=== PATIENT | female | born 1955 | race Caucasian/White ===

== ENCOUNTER 2025-08-07 12:39 | Outpatient (AMB) | payer MEDICARE, SELFPAY ==
--- NOTE | 2025-08-07 12:51 | A.OFFPC_ITS ---
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 Transferring care from Nani Frias ([facility]). Medical records have been requested and have not received. Dining Room Host Required: No Home Improvement Contractor: Not Required per policy Accompanied by: Self / Same As Patient Allergies Sulfa (Sulfonamide Antibiotics) Allergy (Intermediate, Verified 08/07/25 13:00) Hives Medication List - Last Reconciled 08/07/25 by Disha Mckeon MD citalopram 20 mg PO DAILY Tobacco use date assessed: 08/07/25 Fall risk assessment: No Falls in past year Last assessed Fall Risk: 08/07/25 Dental Screening Dental Screen Date: 08/07/25 Did you have a dental visit in the last 12 months?: Yes Did you have a dental problem in the last 6 months where you did not have access to dental care?: No Was dental information given to patient?: Patient has dentist HPI HPI Comments History of Present Illness Details The patient is a 70-year-old female with PMH of MDD presenting to establish care with a new primary care provider. The patient's only current medication is citalopram 20 mg, which was prescribed for anxiety and paranoid feelings that began during menopause, around age 47. She reports her mood is now fine on the medication and does not want to discontinue it, citing a past attempt to stop that resulted in her feeling unwell. She denies any side effects from the medication. The patient reports no history of diabetes or high cholesterol. Her only past surgery was an appendectomy at age 15. She has a history of shingles. She has never smoked. [facility] Surgical History (Updated 08/07/25 @ 13:02 by MORENITA Molina) History of appendectomy Family History (Updated 08/07/25 @ 13:04 by MORENITA Molina) Father Substance use disorder Mother Pancreas cancer Social History (Updated 08/07/25 @ 12:51 by MORENTIA Molina) [facility] Alcohol intake: never Patient Tobacco Use Status: Never used Tobacco e-Cigarette/Vaping Use: Never Used Second Hand Smoke Exposure: No service: No Current occupational status: retired Cognitive needs: No Hearing needs: No Vision needs: Yes (Reading glasses) Questionnaire PHQ-9 Over the last 2 weeks, how often have you been bothered by any of the following problems? 1. Little interest or pleasure in doing things: not at all 2. Feeling down, depressed, or hopeless: not at all 3. Trouble falling or staying asleep, or sleeping too much: not at all 4. Feeling tired or having little energy: not at all 5. Poor appetite or overeating: not at all 6. Feeling bad about yourself - or that you are a failure or have let yourself or your family down: not at all 7. Trouble concentrating on things, such as reading the newspaper or watching television: not at all 8. Moving or speaking so slowly that other people could have noticed. Or the opposite - being so fidgety or restless that you have been moving around a lot more than usual: not at all 9. Thoughts that you would be better off or of hurting yourself in some way: not at all Total score: 0 Depression Screening Interpretation: Negative Depression Screening Done: Yes Source: Developed by Drs. David Richter, Aicha Parker, Ryan Armando and colleagues, with an educational jordan from [employer]. Thrive Questionnaire Date Thrive assessed: 08/07/25 I am a: Patient What is your living situation today?: I have a steady place to live Within the past 12 months, did the food you bought not last and you didn't have the money to get more?: Never true Within the past 12 months, did you worry whether your food would run out before you got money to buy more?: Never true Do you have trouble paying for medicines?: No Do you have trouble getting transportation to medical appointments?: No Do you have trouble paying your heating and electricity bill?: No Do you have trouble taking care of your child, family member or friend?: No Do you have trouble with day-to-day activities such as bathing, preparing meals, shopping, managing finances, etc.?: No Are you currently unemployed and looking for a job?: No Are you interested in more education?: No Please select the resources that you would like help with: None Currently or been in a relationship where the following occur: No concerns reported THRIVE Score: 0 AUDIT C Alcohol Use Questionnaire (AUDIT-C) 1. How often do you have a drink containing alcohol?: Never Total Score: 0 JOSE-7 AMB Questionnaire JOSE-7 Date JOSE - 7 assessed: 08/07/25 Feeling nervous, anxious, or on edge: 0 = Not at all Not being able to stop or control worryin = Not at all Worrying too much about different things: 0 = Not at all Trouble relaxin = Not at all Being so restless that it is hard to sit still: 0 = Not at all Becoming easily annoyed or irritable: 0 = Not at all Feeling afraid as if something awful might happen: 0 = Not at all Total JOSE-7 score (0-4 normal; 5-9 mild; 10-14 moderate; 15-21 severe): 0 Source: Developed by Drs. David Richter, Aicha Parker, Ryan Armando and colleagues, with an educational jordan from [employer]. Review of Systems Const Details: Positives besides what was mentioned in HPI are in BOLD Constitutional: No Weight Change, No Fever, No Chills, No Night Sweats, No Fatigue, No Malaise ENT/Mouth: No Hearing Changes, No Ear Pain, No Nasal Congestion, No Sinus Pain, No Hoarseness, No sore throat, No Rhinorrhea, No Swallowing Difficulty Eyes: No Eye Pain, No Swelling, No Redness, No Foreign Body, No Discharge, No Vision Changes Cardiovascular: No Chest Pain, No SOB, No PND, No Dyspnea on Exertion, No Orthopnea, No Claudication, No Edema, No Palpitations Respiratory: No Cough, No Sputum, No Wheezing, No Smoke Exposure, No Dyspnea Gastrointestinal: No Nausea, No Vomiting, No Diarrhea, No Constipation, No Pain, No Heartburn, No Anorexia, No Dysphagia, No Hematochezia, No Melena, No Flatulence, No Jaundice Genitourinary: No Dysmenorrhea, No DUB, No Dyspareunia, No Dysuria, No Urinary Frequency, No Hematuria, No Urinary Incontinence, No Urgency, No Flank Pain, No Urinary Flow Changes, No Hesitancy Musculoskeletal: No Arthralgias, No Myalgias, No Joint Swelling, No Joint Stiffness, No Back Pain, No Neck Pain, No Injury History Skin: No Skin Lesions, No Pruritis, No Hair Changes, No Breast/Skin Changes, No Nipple Discharge Neuro: No Weakness, No Numbness, No Paresthesias, No Loss of Consciousness, No Syncope, No Dizziness, No Headache, No Coordination Changes, No Recent Falls Psych: No Anxiety/Panic, No Depression, No Insomnia, No Personality Changes, No Delusions, No Rumination, No SI/HI/AH/VH, No Social Issues, No Memory Changes, No Violence/Abuse Hx., No Eating Concerns Heme/Lymph: No Bruising, No Bleeding, No Transfusions History, No Lymphadenopathy Endocrine: No Polyuria, No Polydipsia, No Temperature Intolerance Physical exam (Primary Care) Vital Signs: Last Vital Signs Temp 97.1 F 08/07/25 12:53 Pulse 64 08/07/25 12:53 BP 130/62 08/07/25 12:53 Pulse Ox 97 08/07/25 12:53 Oxygen Delivery Method Room Air 08/07/25 12:53 BMI result Body Mass Index 30.7 Tobacco/Smoking Status: Tobacco use Status Tobacco use date assessed 08/07/25 08/07/25 12:53 Patient Tobacco Use Status Never used Tobacco 08/07/25 12:53 e-Cigarette/Vaping Use Never Used 08/07/25 12:53 PHQ-9: PHQ-9 Score PHQ-9: Total score 0 08/07/25 12:53 Depression Screening Interpretation: Negative Thrive Assessment: Date of Thrive Assessment Date Thrive assessed 08/07/25 08/07/25 12:53 Currently or been in a relationship where the following occur: No concerns reported Const Other: Pertinent findings are in BOLD GENERAL APPEARANCE NAD, activity normal for age, well developed/ well nourished, no cyanosis, pallor, or diaphoresis. EYES lids/conjunctiva normal. EARS/NOSE/THROAT Mucous membranes moist, nares normal, lips/teeth normal uvula midline without oral pharyngeal erythema, exudate or swelling TMs normal bilaterally. No lymphangitis/lymphedema. HEAD/NECK normocephalic atraumatic, no facial trauma, neck is supple. RESPIRATORY respiratory effort normal, speaks in full sentences, no tripod position, no accessory muscle use. Lungs clear to auscultation without rhonchi, wheezes, rales CARDIAC Regular rate and rhythm, no edema. ABDOMINAL Soft, ND/NT. No evidence of fluid wave. No pulsatile masses on exam, rebound tenderness, Trujillo sign or pain over Mcburney's point. MUSCLES/EXTREMITIES No abnormal range of motion, no swelling. SKIN Warm, pink and dry. No rashes, dermatoses, petechiae or lesions. NEUROLOGICAL Speech is clear and appropriate. Normal level of consciousness. Gait and coordination are normal. 5/5 strength in all extremities. PSYCH Normal mood and affect. Judgement/competence is appropriate Coding Level of Care Code New Pt Prev Care >65yr (12222) Diagnoses Healthcare maintenance Z00.00 JSOE (generalized anxiety disorder) F41.1 Time Spent (min) 30 Assessment & Plan Assessment & Plan (1) Healthcare maintenance: Code(s): Z00.00 - Encounter for general adult medical examination without abnormal findings Category: Medical Plan: CBC, CMP, Lipid panel, A1C, TSH w T4, vit D. Ordered today. Shingles 2 doses when >50 yo. Advised to get it from retail pharmacy. Patient will consider. COVID: two doses. Completed in the past. Tdap: Today. Pneumococcal: >50 yo. 18-49 with CKD, lung disease, weakened immune system, Heart disease, DM, cochlear implant. Recommend the patient gets it from retail pharmacy. Flu vaccine: Declined. Colonoscopy: 45-75. Will bring records next visit. AAA: 65 -75. NI. CT lun - 80. NI HPV: Aged out. HIV: Ordered. HCV: Ordered. Dexa: Declined. Mammogram: Gets it every year. (2) JOSE (generalized anxiety disorder): Code(s): F41.1 - Generalized anxiety disorder Category: Medical Plan: - Continue citalopram 20 mg as the patient reports doing well on it and had a negative experience when stopping it previously. - I will take over the prescription refills. Plan I introduced myself as the patient's new primary care physician. I confirmed with the patient that she consents to the use of a disbursement clerk service for note-taking. We will continue the previously prescribed Citalopram. I recommended she get the shingles vaccine to prevent recurrence and the pneumonia vaccine, suggesting she could get them at a retail pharmacy for convenience. We discussed ordering fasting labs, including a one-time HIV and Hepatitis C screen, and she agreed. I advised a follow-up visit in one year for her annual physical. Orders: Orders Hepatitis C Antibody Reflex Today Z00.00 - Encounter for general adult medical examination without abnormal findings HIV Ab/Ag Today Z00.00 - Encounter for general adult medical examination without abnormal findings MM screening mammo BI Today Z12.31 - Encounter for screening mammogram for malignant neoplasm of breast Complete Blood Count no Diff Today Z00.00 - Encounter for general adult medical examination without abnormal findings Comprehensive Met. Panel Today Z00.00 - Encounter for general adult medical examination without abnormal findings TSH reflex Free T4 Today Z00.00 - Encounter for general adult medical examination without abnormal findings Hemoglobin A1c Today Z00.00 - Encounter for general adult medical examination without abnormal findings Lipid Panel Today Z00.00 - Encounter for general adult medical examination without abnormal findings Medications: New citalopram 20 mg PO DAILY 90 tabs 3RF
[2025-08-07 12:53] VITALS: BP 130/62; PULSE 64; TEMP 36.2; O2SAT 97; BMI 30.7
== END 2025-08-07 13:37 | disposition home or self-care (01) ==
LOC: HO.HMCH 12:40
PROVIDERS: Visit Provider Internal Medicine
DX: Z00.00 Encounter for general adult medical examination without abnormal findings (principal); F41.1 Generalized anxiety disorder; Z23 Encounter for immunization

== ENCOUNTER → 2025-08-07 12:39 | Outpatient (BNVA) | payer MEDICARE, SELFPAY | PROVIDERS: Visit Provider Internal Medicine | DX: Z00.00 Encounter for general adult medical examination without abnormal findings (principal); Z23 Encounter for immunization; F41.1 Generalized anxiety disorder | CPT/HCPCS: 90471; 90715; 96127; 99387 ==

== ENCOUNTER 2025-08-10 09:56 | Outpatient (REF) | payer MEDICARE, SELFPAY ==
[2025-08-10 10:46] LABS: Hematocrit 45.0 % (37.0-47.0); Hemoglobin 14.4 g/dl (12.0-16.0); Mean Corpuscular HGB Conc 32.0 g/dl (31.0-35.0); Mean Corpuscular Hemoglobin 29.6 pg (27.0-33.0); Mean Corpuscular Volume 92.4 fL (80.0-98.0); NRBC Abs Auto 0.000 X10*3/uL (0.0-0.012); NRBC Pct Auto 0.0 /100WBC (0.0-0.2); Platelet Count 306 X10*3/uL (160-400); Red Blood Count 4.87 X10*6/uL (4.20-5.50); White Blood Count 5.2 X10*3/uL (4.8-10.8)
--- OUTSIDE RECORDS SUMMARY | 2025-08-10 12:17 | XMS_ITS | Encounter Summary ---
Author Organization [facility] Address [address] [place] [id number] Phone Care Team Providers Care Jig Grinder Name Role Phone Brooke Frias MD Primary Care Provider Brooke Frias MD Unavailable Encounter Details Date Type Department Care Team (Latest Contact Info) Description 12/18/2021 Transcribe Orders Virtual Department [address] [place] [address] Winnie Wright PA [address] [place] [address] Breast screening (Primary Dx) Social History Tobacco Use Types Packs/Day Years Used Date Smoking Tobacco: Never Smokeless Tobacco: Never Alcohol Use Standard Drinks/Week Comments No 0 (1 standard drink = 0.6 oz pur e alcohol) Comments No Sex and Gender Information Value Date Recorded Sex Assigned at Not on file Legal Sex Female 9:55 PM EDT Gender Identity Not on file Sexual Orientation Not on file Occupation Industry Job Start Date Job End Date [employer] Not on file Not on file Not on file documented as of this encounter Plan of Treatment Not on file documented as of this encounter Results * BI MAMMOGRAM SCREENING WITH TOMOSYNTHESIS WITH CAD (BILATERAL) (03/19/2022 9:02 AM EDT) Anatomical Region Laterality Modality Breast Left, Breast Right, Breast Bilateral Bila teral Mammography 03/20/2022 8:28 AM EDT Impressions 03/20/2022 8:34 AM EDT No mammographic signs of malignancy. Annual screening is recommended. BI-RADS CATEGORY: 1 - Negative. DENSITY: There are scattered fibroglandular densities. Narrative 03/20/2022 8:34 AM EDT Bilateral mammography is performed in conjunction with computed aided detection. 3-D tomography along with 2-D C view imaging was also performed. Comparison made to previous dated as far back as 12/11/2003 and as recent as 03/15/2021. No suspicious masses, areas of architectural distortion or suspicious microcalcifications. Procedure Note Marcelo Levi MD - 03/20/2022 Bilateral mammography is performed in conjunction with computed aideddetection. 3-D tomography along with 2-D C view imaging was alsoperformed. Comparison made to previous dated as far back as 12/11/2003 andas recent as 03/15/2021. No suspicious masses, areas of architectural distortion or suspiciousmicrocalcifications. IMPRESSION: No mammographic signs of malignancy. Annual screening is recommended. BI-RADS CATEGORY: 1 - Negative. DENSITY: There are scattered fibroglandular densities. Winnie POE IMG MG EXAMS Final Result documented in this encounter Visit Diagnoses Diagnosis Breast screening- Primary Breast screening, unspecified Breast screening Breast screening, unspecified documented in this encounter Care Teams Jig Grinder Relationship Specialty Start Date End Date Brooke Frias MD [address] [place] [address] PCP - General 06/08/17 Brooke Frias MD [address] [place] [address] Insurance Assigned Provider 11/28/2302/21 documented as of this encounter Additional Source Comments The information contained in this document represents components of the legal health record. It is not the complete legal health record.[facility]
--- OUTSIDE RECORDS SUMMARY | 2025-08-10 12:17 | XMS_ITS | Encounter Summary ---
Author Organization [facility] Address [address] [place] [id number] Phone Care Team Providers Care Joss House Keeper Name Role Phone Brooke Frias MD Primary Care Provider Brooke Frias MD Unavailable [phone] Encounter Details Date Type Department Care Team (Late st Contact Info) Description 10/05/2018 Ancillary Orders Virtual Department [address] [place] [address] Brooke Frias MD [address] [place] [email or web address] Breast screening Social History Tobacco Use Types Packs/Day Years [...] Industry Job Start Date Job End Date [employer] Not on file Not on file Not on file documented as of this encounter Plan of Treatment Not on file documented as of this encounter Results * BI MAMMOGRAM SCREENING WITH TOMOSYNTHESIS WITH CAD (BILATERAL) (11/24/2018 9:54 AM EDT) Anatomical Region Laterality Modality Breast Left, Breast Right, Breast Bilateral Bila teral Mammography 11/24/2018 10:5 0 AM EDT Impressions 11/24/2018 11:29 AM EDT BILATERAL BREASTS: Negative, no evidence of malignancy. Normal interval follow- up is recommended in 12 months. Bi-RAD: BI-RADS CATEGORY: 1 - Negative. DENSITY: The breast tissue is heterogeneously dense, an appearance which lowers the sensitivity of mammography. POS - CDHMAMA Narrative 11/24/2018 11:29 AM EDT STUDY: Bilateral screening mammography with tomosynthesis and CAD TECHNIQUE: Bilateral full-field digital screening mammography is obtained and read in conjunction with computer-aided detection. Tomosynthesis as well as 2-D C view imaging were obtained. COMPARISON: Comparison made to multiple prior, most recent November 19, 2017, and most remote August 28, 2011. BREAST COMPOSITION: The breasts are heterogeneously dense, which may obscure small masses. BILATERAL BREASTS: No significant masses, calcifications or other abnormalities are seen. Procedure Note Byron Sotelo MD - 11/24/2018 STUDY: Bilateral screening mammography with tomosynthesis and CAD TECHNIQUE: Bilateral full-field digital screening mammography is obtainedand read in conjunction with computer-aided detection. Tomosynthesis aswell as 2-D C view imaging were obtained. COMPARISON: Comparison made to multiple prior, most recent November 19, 2017,and most remote August 28, 2011. BREAST COMPOSITION: The breasts are heterogeneously dense, which mayobscure small masses. BILATERAL BREASTS: No significant masses, calcifications or otherabnormalities are seen. IMPRESSION: BILATERAL BREASTS: Negative, no evidence of malignancy. Normal intervalfollow-up is recommended in 12 months. Bi-RAD: BI-RADS CATEGORY: 1 - Negative. DENSITY: The breast tissue is heterogeneously dense, an appearance whichlowers the sensitivity of mammography. POS - CDHMAMA Brooke Frias MD IMG MG EXAMS Final Resul t documented in this encounter Visit Diagnoses Diagnosis Breast screening Breast screening, unspecified Breast screening Breast screening, unspecified documented in this encounter Care Teams Joss House Keeper Relationship Specialty Start Date End Date Brooke Frias MD [address] [place] [id number] [email or web address] PCP - General 06/08/17 Brooke Frias MD [address] [place] [address] [email or web address] Insurance Assigned Provider 11/28/2302/21 documented as of this encounter Additional Source Comments The information contained in this document represents components of the legal health record. It is not the complete legal health record.[facility]
--- OUTSIDE RECORDS SUMMARY | 2025-08-10 12:18 | XMS_ITS | Encounter Summary ---
Author Organization [facility] Address [address] [place] [address] Phone Care Team Providers Care Business Objects Developer Name Role Phone Brooke Frias MD Primary Care Provider [phone] Brooke Frias MD Unavailable [phone] Encounter Details Date Type Department Care Team (Late st Contact Info) Description 12/18/2021 Procedure Pass [address] [address] Social History Tobacco Use Types Packs/Day Years [...] Industry Job Start Date Job End Date [employer] Not on file Not on file Not on file documented as of this encounter Plan of Treatment Not on file documented as of this encounter Visit Diagnoses Not on filedocumented in this encounter Care Teams Business Objects Developer Relationship Specialty Start Date End Date Brooke Frias MD [address] [place] [address] PCP - General 06/08/17 Brooke Frias MD [address] [place] [address] [email or web address] Insurance Assigned Provider 11/28/2302/21 documented as of this encounter Additional Source Comments The information contained in this document represents components of the legal health record. It is not the complete legal health record.[facility]
--- OUTSIDE RECORDS SUMMARY | 2025-08-10 12:18 | XMS_ITS | Encounter Summary ---
Author Organization [facility] Address [address] [place] [address] Phone Care Team Providers Care Java Technical Manager Name Role Phone Brooke Frias MD Primary Care Provider Brooke Frias MD Unavailable [phone] Encounter Details Date Type Department Care Team (Latest Contact Info) Description 01/06/2018 Transcribe Orders [facility] Main [address] [place] [address] Winnie Wright PA [address] [place] [address] [email or web address] Routine medical exam (Primary Dx) Social History Tobacco Use Types Packs/Day Years Used Date Smoking Tobacco: Never Assessed Comments No Sex and Gender Information Value Date Recorded Sex Assigned at Not on file Legal Sex Female 9:55 PM EDT Gender Identity Not on file Sexual Orientation Not on file documented as of this encounter Plan of Treatment Not on file documented as of this encounter Results * CBC and differential (01/06/2018 1:02 PM EDT) WBC 8.01 3.40 - 11.20 K/uL [facility] RBC 4.68 3.80 - 4.80 M/uL [facility] HGB 13.6 12.0 - 15.0 g/dL [facility] HCT 42.8 36.0 - 46.0 % [facility] PLT 311 130 - 400 K/uL [facility] MCV 91.5 79.0 - 98.0 fL [facility] MCH 29.1 27.0 - 34.8 pg [facility] MCHC 31.8 31.5 - 36.0 g/dL [facility] RDW 13.6 10.8 - 14.6 % [facility] MPV 9.9 9.4 - 12.4 fl [facility] NRBC 0.00 /100 WBCs [facility] ABSOLUTE NRBC 0.00 K/uL [facility] DIFF METHOD Auto [facility] NEUTS 62.8 45.30 - 77.70 % [facility] LYMPHS 28.5 12.30 - 39.70 % [facility] MONOS 5.7 4.10 - 12.80 % [facility] EOS 1.9 0 - 7.2 % [facility] BASOS 0.9 0 - 2.80 % [facility] Granulocytes, immature (%) 0.2 0.0 - 0.9 % [facility] ABSOLUTE NEUTS 5.03 1.40 - 7.70 K/uL [facility] ABSOLUTE LYMPHS 2.28 0.60 - 3.20 K/uL [facility] ABSOLUTE MONOS 0.46 0.11 - 0.59 K/uL [facility] ABSOLUTE EOS 0.15 0.01 - 0.50 K/uL [facility] ABSOLUTE BASOS 0.07 0.00 - 0.08 K/uL [facility] Granulocytes, immature 0.02 0.00 - 0.05 K/uL [facility] Blood 01/06/2018 1:02 PM EDT 01/06/2018 1:06 PM EDT us Winnie POE LAB BLOOD BKR ORDERABLES Final Result [facility] [address] [place], [place] [id number] * Lipid panel (01/06/2018 1:02 PM EDT) HDL 55 mg/dL [facility] Comment: Interpretation: Risk Level Females Decreased >55mg/dL Average 50-55 mg/dL Increased <50 mg/dL CHOLESTEROL 201 0 - 240 mg/dL [facility] TRIGLYCERIDES 99 30 - 160 mg/dL [facility] LDL 126 50 - 129 mg/dL [facility] Comment: LDL levels in terms of risk for coronary heart disease: <100 mg/dL: Optimal 100-129 mg/dL: Near or above optimal 130-159 mg/dL: Borderline high 160-189 mg/dL: High >190 mg/dL: Very High CARDIAC RISK RATIO 3.7 3.3 - 4.4 C [facility] Blood 01/06/2018 1:02 PM EDT 01/06/2018 1:06 PM EDT us Winnie POE LAB BLOOD BKR ORDERABLES Final Result [facility] [address] [place] [address] * Comprehensive metabolic panel (01/06/2018 1:02 PM EDT) SODIUM 144 133 - 146 mmol/L [facility] POTASSIUM 4.4 3.3 - 5.1 mmol/L [facility] CHLORIDE 105 96 - 108 mmol/L [facility] CO2 27 21 - 35 mmol/L [facility] BUN 16 6 - 19 mg/dL [facility] CREATININE 0.70 0.5 - 1.5 mg/dL [facility] GLUCOSE 84 70 - 99 mg/dL [facility] ALBUMIN 4.1 3.9 - 4.8 g/dL [facility] TOTAL PROTEIN 7.2 6.5 - 8.0 g/dL [facility] CALCIUM 9.0 8.4 - 10.3 mg/dL [facility] ALKALINE PHOSPHATASE 84 39 - 117 U/L [facility] TOTAL BILIRUBIN 0.2 0.0 - 1.2 mg/dL [facility] AST 19 0 - 37 U/L [facility] ALT 17 0 - 40 U/L [facility] GLOBULIN 3.1 1 - 4.8 g/dL [facility] EGFR 93 >59 mL/min/1.7 3m2 [facility] Comment:If patient is black, multiply result by 1.159. The eGFR calculation has changed from the MDRD equation to the CKD-EPI equation as of October 27, 2017. ANION GAP 16 10 - 20 mmol/L [facility] Blood 01/06/2018 1:02 PM EDT 01/06/2018 1:06 PM EDT Winnie POE LAB BLOOD BKR ORDERABLES Final Result Performing Organization Address [facility] de Phone Number [address] [address] * (ABNORMAL) Urinalysis (01/06/2018 1:02 PM EDT) COLOR STRAW(A) Yellow [facility] CLARITY Clear [facility] GLUCOSE Negative Negative [facility] BILI Negative Negative [facility] KETONES Negative Negative [facility] SPECIFIC GRAVITY <1.005 1.005 - 1.030 [facility] BLOOD Negative Negative [facility] PH 6.0 5.0 - 8.0 [facility] Protein-UA Negative Negative [facility] NITRITE Negative Negative [facility] Leukocyte esterase, ur Negative Negative [facility] Urine (Urine) 01/06/2018 1:0 2 PM EDT 01/06/2018 1:06 PM EDT Winnie POE LAB URINE ORDERABLES Final Resu lt Performing Organization Address [facility] de Phone Number [address] [address] documented in this encounter Visit Diagnoses Diagnosis Routine medical exam- Primary Routine general medical examination at a health care facility documented in this encounter Care Teams Java Technical Manager Relationship Specialty Start Date End Date Brooke Frias MD [address] [place] [address] PCP - General 06/08/17 Brooke Frias MD [address] [place] [address] Insurance Assigned Provider 11/28/2302/21 documented as of this encounter Additional Source Comments The information contained in this document represents components of the legal health record. It is not the complete legal health record.[facility]
--- OUTSIDE RECORDS SUMMARY | 2025-08-10 12:18 | XMS_ITS | Encounter Summary ---
Author Organization [facility] Address [address] [place] [address] Phone Care Team Providers Care Driller Operator Name Role Phone Brooke Frias MD Primary Care Provider [phone] Brooke Frias MD Unavailable [phone] Encounter Details Date Type Department Care Team (Late st Contact Info) Description 12/29/2023 Procedure Pass [facility] [address] [place] [address] Social History Tobacco Use Types Packs/Day Years Used Date Smoking Tobacco: Never Smokeless Tobacco: Never Alcohol Use Standard Drinks/Week Comments No 0 (1 standard drink = 0.6 oz pur e alcohol) Education Answer Date Recorded Are you interested in more education? Not on rajni e 12/19/2022 Are you concerned about learning? Not on file 12/19/2022 No 12/19/2022 No 12/19/2022 Digital Access Answer Date Recorded No 01/19/2023 No 01/19/2023 Reliable internet access at home? Not on file 01/19/2023 Device with a working camera? Not on file Comments No Sex and Gender Information Value Date Recorded Sex Assigned at Not on file Legal Sex Female 9:55 PM EDT Gender Identity Not on file Sexual Orientation Not on file Occupation Industry Job Start Date Job End Date [employer] Not on file Not on file Not on file documented as of this encounter Plan of Treatment Not on file documented as of this encounter Visit Diagnoses Not on filedocumented in this encounter Care Teams Driller Operator Relationship Specialty Start Date End Date Brooke Frias MD [address] [place] [address] [email or web address] PCP - General 06/08/17 Brooke Frias MD [address] [place] [address] [email or web address] Insurance Assigned Provider 11/28/2302/21 documented as of this encounter Additional Source Comments The information contained in this document represents components of the legal health record. It is not the complete legal health record.[facility]
--- OUTSIDE RECORDS SUMMARY | 2025-08-10 12:18 | XMS_ITS | Encounter Summary ---
Author Organization [facility] Address [address] [place] [address] [place] [address] Phone Care Team Providers Care Tiller Worker Name Role Phone Brooke Frias MD Primary Care Provider [phone] Brooke Frias MD Unavailable [phone] Encounter Details Date Type Department Care Team (Late st Contact Info) Description 01/15/2019 Ancillary Orders [facility], X-Ray - [address] [place] [address] Winnie Wright PA [address] [place] [address] [email or web address] Social History Tobacco Use Types Packs/Day Years [...] Industry Job Start Date Job End Date [employer] Not on file Not on file Not on file documented as of this encounter Plan of Treatment Not on file documented as of this encounter Results * XR KNEE 4 OR MORE VIEWS (LEFT) (01/15/2019 3:12 PM EDT) Anatomical Region Laterality Modality Knee Left Radiographic Emi ging 01/15/2019 9:04 PM EDT Impressions 01/15/2019 9:08 PM EDT Mild degenerative changes. POS - [id number] Narrative 01/15/2019 9:08 PM EDT HISTORY: Pain for three months possible cyst at posterior aspect of knee. No known trauma. COMPARISON: None. VIEWS: Four views. FINDINGS: Mild joint space narrowing medially and laterally. Mild marginal spurring medially and minimally at the lateral and patellofemoral compartments. No fractures or dislocations. No evidence of erosions. No suspicious lytic or blastic lesions within the bones. No evidence of joint effusion. Procedure Note Marcelo Kenney MD - 01/15/2019 HISTORY: Pain for three months possible cyst at posterior aspect of knee.No known trauma. COMPARISON: None. VIEWS: Four views. FINDINGS: Mild joint space narrowing medially and laterally. Mild marginal spurringmedially and minimally at the lateral and patellofemoral compartments. Nofractures or dislocations. No evidence of erosions. No suspicious lyticor blastic lesions within the bones. No evidence of joint effusion. IMPRESSION: Mild degenerative changes. POS - [id number] Winnie POE IMG XR LOWER EXTREMITY Final Re sult documented in this encounter Visit Diagnoses Diagnosis Pain Generalized pain Pain Generalized pain documented in this encounter Care Teams Tiller Worker Relationship Specialty Start Date End Date Brooke Frias MD [address] [place] [address] PCP - General 06/08/17 Brooke Frias MD [address] [place] [address] Insurance Assigned Provider 11/28/2302/21 documented as of this encounter Additional Source Comments The information contained in this document represents components of the legal health record. It is not the complete legal health record.[facility]
--- OUTSIDE RECORDS SUMMARY | 2025-08-10 12:18 | XMS_ITS | Encounter Summary ---
Author Organization [facility] Address [address] [place] [address] Phone Care Team Providers Care Hospital Intern Name Role Phone Brooke Frias MD Primary Care Provider [phone] Brooke Frias MD Unavailable [phone] Encounter Details Date Type Department Care Team (Late st Contact Info) Description 12/19/2020 Procedure Pass [facility] [address] [place] [address] Social History Tobacco Use Types Packs/Day Years [...] Industry Job Start Date Job End Date [employer] Not on file Not on file Not on file documented as of this encounter Plan of Treatment Not on file documented as of this encounter Visit Diagnoses Not on filedocumented in this encounter Care Teams Hospital Intern Relationship Specialty Start Date End Date Brooke Frias MD [address] [place] [address] PCP - General 06/08/17 Brooke Frias MD [address] [place] [address] [email or web address] Insurance Assigned Provider 11/28/2302/21 documented as of this encounter Additional Source Comments The information contained in this document represents components of the legal health record. It is not the complete legal health record.[facility]
--- OUTSIDE RECORDS SUMMARY | 2025-08-10 12:18 | XMS_ITS | Encounter Summary ---
Author Organization [facility] Address [address] [place] [address] Phone Care Team Providers Care Salt Miner Name Role Phone Brooke Frias MD Primary Care Provider Brooke Frias MD Unavailable [phone] Encounter Details Date Type Department Care Team (Late st Contact Info) Description 12/31/2023 Ancillary Orders [facility], X-Ray - [facility] [address] [place] [address] Winnie Wright PA [address] [place] [address] [email or web address] Cough, unspecified type (Primary Dx) Social History Tobacco Use Types [...] Industry Job Start Date Job End Date [employer] Not on file Not on file Not on file documented as of this encounter Plan of Treatment Not on file documented as of this encounter Results * XR CHEST PA AND LATERAL 2 VIEWS (12/31/2023 3:37 PM EDT) Anatomical Region Laterality Modality Chest Computed Radiogr aphy 12/31/2023 6:34 PM EDT Impressions 12/31/2023 6:35 PM EDT No acute findings. Narrative 12/31/2023 6:35 PM EDT XR CHEST PA AND LATERAL 2 VIEWS Referring clinician's provided indication for this examination in [facility]: Wheezing; no pneumonia COMPARISON: None FINDINGS: Lungs: Clear lungs. Pleura: No pleural effusion. No pneumothorax Heart/Mediastinum: Heart size normal. Bones/Soft Tissues: No acute finding Procedure Note Alejandro Cabezas MD, ST[facility] - 12/31/2023 XR CHEST PA AND LATERAL 2 VIEWS Referring clinician's provided indication for this examination in [facility]:Wheezing; no pneumonia COMPARISON: None FINDINGS: Lungs: Clear lungs. Pleura: No pleural effusion. No pneumothorax Heart/Mediastinum: Heart size normal. Bones/Soft Tissues: No acute finding IMPRESSION: No acute findings. Winnie POE IMG XR CHEST Final Result documented in this encounter Visit Diagnoses Diagnosis Cough, unspecified type- Primary Cough, unspecified type documented in this encounter Care Teams Salt Miner Relationship Specialty Start Date End Date Brooke Frias MD [address] [place] [address] PCP - General 06/08/17 Brooke Frias MD [address] [place] [address] Insurance Assigned Provider 11/28/2302/21 documented as of this encounter Additional Source Comments The information contained in this document represents components of the legal health record. It is not the complete legal health record.[facility]
--- OUTSIDE RECORDS SUMMARY | 2025-08-10 12:18 | XMS_ITS | Encounter Summary ---
Author Organization [facility] Address [address] [place] [address] Phone Care Team Providers Care Inspector Tool Name Role Phone Brooke Frias MD Primary Care Provider Brooke Frias MD Unavailable Encounter Details Date Type Department Care Team (Late st Contact Info) Description 10/02/2017 Ancillary Orders Virtual Department [address] [place] [address] Winnie Wright PA [address] [place] [address] [email or web address] Breast screening Social History Tobacco Use Types Packs/Day Years Used Date Smoking Tobacco: Never Assessed Comments Unknown Sex and Gender Information Value Date Recorded Sex Assigned at Not on file Legal Sex Female 9:55 PM EDT Gender Identity Not on file Sexual Orientation Not on file documented as of this encounter Plan of Treatment Not on file documented as of this encounter Results * (ABNORMAL) BI MAMMOGRAM SCREENING WITH TOMOSYNTHESIS WITH CAD (BILATERAL) (11/19/2017 3:14 PM EDT) Anatomical Region Laterality Modality Breast Left, Breast Right, Breast Bilateral Bila teral Mammography 11/19/2017 3:19 PM EDT Impressions 11/19/2017 3:27 PM EDT Recommend recalling the patient for a right breast density which may represent superimposed tissue. Radiology department will attempt to recall the patient. Recall views: Spot compression right cc view. BI-RADS CATEGORY: 0 - Incomplete. Need additional imaging evaluation. DENSITY: The breast tissue is heterogeneously dense, an appearance which lowers the sensitivity of mammography. RIGHT RECOMMENDATION DATE: 1 Month Additional Imaging LEFT RECOMMENDATION DATE: 12 Months Mammography Screening POS - [id number] Narrative 11/19/2017 3:27 PM EDT 62-year-old female with no current breast symptoms. Comparison made to previous on 11/13/2016 and as far back as 04/09/2009. Interpretation made in conjunction with computer-aided detection and tomosynthesis. The breasts are heterogeneously dense, which may obscure small masses. There is a nodular density in the anterior medial right breast on the cc view which appears slightly more prominent compared to prior exams. There are no suspicious masses, areas of architectural distortion, or suspicious clusters of microcalcifications. Procedure Note Zeinab Boone MD - 11/19/2017 62-year-old female with no current breast symptoms. Comparison made toprevious on 11/13/2016 and as far back as 04/09/2009. Interpretation madein conjunction with computer-aided detection and tomosynthesis. The breasts are heterogeneously dense, which may obscure small masses.There is a nodular density in the anterior medial right breast on the ccview which appears slightly more prominent compared to prior exams. There are no suspicious masses, areas of architectural distortion, orsuspicious clusters of microcalcifications. IMPRESSION: Recommend recalling the patient for a right breast density which mayrepresent superimposed tissue. Radiology department will attempt torecall the patient. Recall views: Spot compression right cc view. BI-RADS CATEGORY: 0 - Incomplete. Need additional imaging evaluation. DENSITY: The breast tissue is heterogeneously dense, an appearance whichlowers the sensitivity of mammography. RIGHT RECOMMENDATION DATE: 1 Month Additional Imaging LEFT RECOMMENDATION DATE: 12 Months Mammography Screening POS - [id number] Winnie POE IMG MG EXAMS Final Result documented in this encounter Visit Diagnoses Diagnosis Breast screening Breast screening, unspecified Breast screening Breast screening, unspecified documented in this encounter Care Teams Inspector Tool Relationship Specialty Start Date End Date Brooke Frias MD [address] [place] [address] [email or web address] PCP - General 06/08/17 Brooke Frias MD [address] [place] [address] [email or web address] Insurance Assigned Provider 11/28/2302/21 documented as of this encounter Additional Source Comments The information contained in this document represents components of the legal health record. It is not the complete legal health record.[facility]
--- OUTSIDE RECORDS SUMMARY | 2025-08-10 12:18 | XMS_ITS | Encounter Summary ---
Author Organization [facility] Address [address] [place] [address] Phone Care Team Providers Care Shearing Shed Hand Name Role Phone Brooke Frias MD Primary Care Provider Brooke Frias MD Unavailable Encounter Details Date Type Department Care Team (Late st Contact Info) Description 09/04/2017 Ancillary Orders Virtual Department [address] [place] [address] Winnie Wright PA [address] [place] [address] [email or web address] Thyroid nodule Social History Tobacco Use Types Packs/Day Years Used Date Smoking Tobacco: Never Assessed Comments Unknown Sex and Gender Information Value Date Recorded Sex Assigned at Not on file Legal Sex Female 9:55 PM EDT Gender Identity Not on file Sexual Orientation Not on file documented as of this encounter Plan of Treatment Not on file documented as of this encounter Results * US Thyroid Gland (09/14/2017 2:44 PM EST) Anatomical Region Laterality Modality Neck, Head, Chest Ultrasound 09/14/2017 7:22 PM EST Impressions 09/14/2017 7:26 PM EST Solid nodule within each thyroid lobe. Both occupying much of the volume of each lobe of the thyroid. They do not have highly suspicious features. Neither are calcified. POS - [id number] Narrative 09/14/2017 7:26 PM EST HISTORY: Known thyroid nodule, swelling. COMPARISON: None. FINDINGS: Right lobe: Right lobe is mildly enlarged measuring 5.7 cm x 2.6 x 2.1 m. Occupying much of the right lobe is a 4.5 cm x 2.1 cm x 2.1 cm iso--- hypoechoic, mildly heterogeneous nodule. This does not appear calcified. Diffuse blood flow demonstrated within the nodule. No other space-occupying lesions visualized. Left lobe: Lobe within normal limits in size measuring 4.7 cm x 2.1 cm x 1.9 cm. Occupying much of the left lobe is a 2.7 cm x 1.8 cm x 1.6 cm iso--- hypoechoic nodule. This is similar to the nodule on the right. There is blood flow demonstrated throughout the nodule. It does not appear calcified. No other space-occupying lesions visualized. Procedure Note Marcelo Kenney MD - 09/14/2017 HISTORY: Known thyroid nodule, swelling. COMPARISON: None. FINDINGS: Right lobe: Right lobe is mildly enlarged measuring 5.7 cm x 2.6 x 2.1 m.Occupying much of the right lobe is a 4.5 cm x 2.1 cm x 2.1 cm iso---hypoechoic, mildly heterogeneous nodule. This does not appear calcified.Diffuse blood flow demonstrated within the nodule. No otherspace-occupying lesions visualized. Left lobe: Lobe within normal limits in size measuring 4.7 cm x 2.1 cm x1.9 cm. Occupying much of the left lobe is a 2.7 cm x 1.8 cm x 1.6 cmiso--- hypoechoic nodule. This is similar to the nodule on the right.There is blood flow demonstrated throughout the nodule. It does notappear calcified. No other space-occupying lesions visualized. IMPRESSION: Solid nodule within each thyroid lobe. Both occupying much of the volumeof each lobe of the thyroid. They do not have highly suspicious features.Neither are calcified. POS - [id number] us Winnie POE IMDavy US THYROID Final Result documented in this encounter Visit Diagnoses Diagnosis Thyroid nodule Nontoxic uninodular goiter Thyroid nodule Nontoxic uninodular goiter documented in this encounter Care Teams Shearing Shed Hand Relationship Specialty Start Date End Date Brooke Frias MD [address] [place] [address] [email or web address] PCP - General 06/08/17 Brooke Frias MD [address] [place] [address] [email or web address] Insurance Assigned Provider 11/28/2302/21 documented as of this encounter Additional Source Comments The information contained in this document represents components of the legal health record. It is not the complete legal health record.[facility]
--- OUTSIDE RECORDS SUMMARY | 2025-08-10 12:18 | XMS_ITS | Encounter Summary ---
Author Organization [facility] Address [address] [place] [address] Phone Care Team Providers Care Ampoule Sealer Name Role Phone Brooke Frias MD Primary Care Provider Brooke Frias MD Unavailable [phone] Encounter Details Date Type Department Care Team (Late st Contact Info) Description 08/31/2019 Ancillary Orders Virtual Department 30 [place] [address] Brooke Frias MD [address] [place] [address] [email or web address] Breast screening Social History Tobacco Use Types [...] Industry Job Start Date Job End Date [employer] Not on file Not on file Not on file documented as of this encounter Plan of Treatment Not on file documented as of this encounter Results * BI MAMMOGRAM SCREENING WITH TOMOSYNTHESIS WITH CAD (BILATERAL) (03/13/2020 10:40 AM EDT) Anatomical Region Laterality Modality Breast Left, Breast Right, Breast Bilateral Bila teral Mammography 03/13/2020 11:0 2 AM EDT Impressions 03/13/2020 11:04 AM EDT No mammographic evidence of malignancy. BI-RADS CATEGORY: 1 - Negative. DENSITY: The breast tissue is heterogeneously dense, an appearance which lowers the sensitivity of mammography. POS - [id number] Narrative 03/13/2020 11:04 AM EDT Standard digital full-field 2-D C view and two-plane tomographic imaging was performed and compared with multiple prior studies, most recently 11/24/2018, with utilization of computer-aided detection. The breast parenchyma is heterogeneously dense, somewhat limiting mammographic sensitivity. The stromal markings are essentially unchanged in overall appearance and distribution. No dominant spiculated mass, suspicious clustered microcalcifications, or focal zone of pathologic skin thickening or retraction are noted to have arisen in the interim. Procedure Note Jacques Parekh MD - 03/13/2020 Standard digital full-field 2-D C view and two-plane tomographic imagingwas performed and compared with multiple prior studies, most [id number]/03/2019, with utilization of computer-aided detection. The breast parenchyma is heterogeneously dense, somewhat limitingmammographic sensitivity. The stromal markings are essentially unchangedin overall appearance and distribution. No dominant spiculated mass,suspicious clustered microcalcifications, or focal zone of pathologic skinthickening or retraction are noted to have arisen in the interim. IMPRESSION: No mammographic evidence of malignancy. BI-RADS CATEGORY: 1 - Negative. DENSITY: The breast tissue is heterogeneously dense, an appearance whichlowers the sensitivity of mammography. POS - [id number] Brooke Frias MD IMG MG EXAMS Final Resul t documented in this encounter Visit Diagnoses Diagnosis Breast screening Breast screening, unspecified Breast screening Breast screening, unspecified documented in this encounter Care Teams Ampoule Sealer Relationship Specialty Start Date End Date Brooke Frias MD [address] [place] [address] PCP - General 06/08/17 Brooke Frias MD [address] [place] [address] [email or web address] Insurance Assigned Provider 11/28/2302/21 documented as of this encounter Additional Source Comments The information contained in this document represents components of the legal health record. It is not the complete legal health record.[facility]
--- OUTSIDE RECORDS SUMMARY | 2025-08-10 12:18 | XMS_ITS | Encounter Summary ---
Author Organization [facility] Address [address] [place] [address] Phone Care Team Providers Care Video Game Creator Name Role Phone Brooke Frias MD Primary Care Provider Brooke Frias MD Unavailable [phone] Encounter Details Date Type Department Care Team (Latest Contact Info) Description 12/29/2023 Transcribe Orders Virtual Department 30 [place] [address] Winnie Wright PA [address] [place] [address] [email or web address] Breast screening (Primary Dx) Social History Tobacco [...] Industry Job Start Date Job End Date [employer] Not on file Not on file Not on file documented as of this encounter Plan of Treatment Not on file documented as of this encounter Results * BI MAMMOGRAM SCREENING WITH TOMOSYNTHESIS WITH CAD (BILATERAL) (04/06/2024 12:46 PM EDT) Anatomical Region Laterality Modality Breast Left, Breast Right, Breast Bilateral Bila teral Mammography 04/06/2024 9:37 PM EDT Impressions 04/06/2024 9:39 PM EDT No mammographic evidence of malignancy in either breast. Annual screening mammography is recommended. BI-RADS 1 NEGATIVE The patient will be notified of the results and recommendations. Narrative 04/06/2024 9:39 PM EDT BI MAMMOGRAM SCREENING WITH TOMOSYNTHESIS WITH CAD (BILATERAL) Additional patient information: Screening. COMPARISON: Comparison is made with relevant prior imaging. Breast composition: There are scattered areas of fibroglandular density. FINDINGS: No abnormal masses, suspicious calcifications, or other significant findings are identified mammographically in either breast. Procedure Note Ramila Dunham MD - 04/06/2024 BI MAMMOGRAM SCREENING WITH TOMOSYNTHESIS WITH CAD (BILATERAL) Additional patient information: Screening. COMPARISON: Comparison is made with relevant prior imaging. Breast composition: There are scattered areas of fibroglandular density. FINDINGS: No abnormal masses, suspicious calcifications, or other significantfindings are identified mammographically in either breast. IMPRESSION: No mammographic evidence of malignancy in either breast. Annual screening mammography is recommended. BI-RADS 1 NEGATIVE The patient will be notified of the results and recommendations. Winnie POE IMG MG EXAMS Final Result documented in this encounter Visit Diagnoses Diagnosis Breast screening- Primary Breast screening, unspecified Breast screening Breast screening, unspecified documented in this encounter Care Teams Video Game Creator Relationship Specialty Start Date End Date Brooke Frias MD [address] [place] [address] [email or web address] PCP - General 06/08/17 Brooke Frias MD [address] [place] [address] [email or web address] Insurance Assigned Provider 11/28/2302/21 documented as of this encounter Additional Source Comments The information contained in this document represents components of the legal health record. It is not the complete legal health record.[facility]
--- OUTSIDE RECORDS SUMMARY | 2025-08-10 12:18 | XMS_ITS | Encounter Summary ---
Author Organization [facility] Address [address] [place] [address] Phone Care Team Providers Care Bus Driver Supervisor Name Role Phone Brooke Frias MD Primary Care Provider Brooke Frias MD Unavailable [phone] Encounter Details Date Type Department Care Team (Late st Contact Info) Description 12/19/2020 Transcribe Orders Virtual Department 30 [place] [address] Brooke Frias MD [address] [place] [address] [email or web address] Breast screening (Primary Dx) Social History Tobacco [...] Industry Job Start Date Job End Date [employer] Not on file Not on file Not on file documented as of this encounter Plan of Treatment Not on file documented as of this encounter Results * BI MAMMOGRAM SCREENING WITH TOMOSYNTHESIS WITH CAD (BILATERAL) (03/15/2021 9:13 AM EDT) Anatomical Region Laterality Modality Breast Left, Breast Right, Breast Bilateral Bila teral Mammography 03/15/2021 11:2 3 AM EDT Impressions 03/15/2021 11:26 AM EDT No mammographic signs of malignancy. Annual screening is recommended. BI-RADS CATEGORY: 1 - Negative. DENSITY: There are scattered fibroglandular densities. Narrative 03/15/2021 11:26 AM EDT Bilateral mammography is performed in conjunction with computed aided detection. 3-D tomography along with 2-D C view imaging was also performed. Comparison made to previous dated as far back as 09/07 and as recent as 03/13/2020. No suspicious masses, areas of architectural distortion or suspicious microcalcifications. Procedure Note Marcelo Levi MD - 03/15/2021 Bilateral mammography is performed in conjunction with computed aideddetection. 3-D tomography along with 2-D C view imaging was alsoperformed. Comparison made to previous dated as far back as 09/07 andas recent as 03/13/2020. No suspicious masses, areas of architectural distortion or suspiciousmicrocalcifications. IMPRESSION: No mammographic signs of malignancy. Annual screening is recommended. BI-RADS CATEGORY: 1 - Negative. DENSITY: There are scattered fibroglandular densities. Brooke Frias MD IMG MG EXAMS Final Resul t documented in this encounter Visit Diagnoses Diagnosis Breast screening- Primary Breast screening, unspecified Breast screening Breast screening, unspecified documented in this encounter Care Teams Bus Driver Supervisor Relationship Specialty Start Date End Date Brooke Frias MD [address] [place] [address] PCP - General 06/08/17 Boroke Frias MD [address] [place] [address] Insurance Assigned Provider 11/28/2302/21 documented as of this encounter Additional Source Comments The information contained in this document represents components of the legal health record. It is not the complete legal health record.[facility]
--- OUTSIDE RECORDS SUMMARY | 2025-08-10 12:18 | XMS_ITS | Clinical Summary ---
Author Organization [facility] Address [address] [place] [address] Phone Care Team Providers Care Bolt Man Name Role Phone Brooke Frias MD Primary Care Provider Allergies Active Allergy Reactions Criticality Noted Date Comments Diphenhydramine Hcl Swelling 02/17/2018 Sulfa (Sulfonamide Antibiotics) Swelling 01/23 Medications citalopram (CELEXA) 20 MG tablet 1 tablet Active SUMAtriptan (IMITREX) 100 MG tablet 1 tablet Active cholecalciferol (VITAMIN D3) 1,000 unit tablet 1 tablet Active calcium carbonate-vitami n D3 1,250 mg (500 mg elemental)-400 units Tab Take 1 tablet by mouth daily. Active Active Problems No known active problems Immunizations Immunization Administration Dates Next Due INFLUENZA, SPLIT VIRUS, TRIVALENT W/ PRESERVATIV E IM 09/09/2012 Td (adult) 5 Lf Tetanus Toxoid, PF, Adsorbed Family History Medical History Relation Comments Alcohol abuse Father of complica tions of alcoholism Cancer Maternal Grandfather CV disease Maternal Grandmother CV disease Mother CV disease Paternal Grandmother No Known Problems Sister alive and well Relation Status Comments Father Maternal Grandfather Maternal Grandmother Mother Alive Paternal Grandmother Sister Alive Social History Tobacco Use Types Packs/Day Years [...] Industry Job Start Date Job End Date [employer] Not on file Not on file Not on file Last Filed Vital Signs Vital Sign Reading Time Taken Comments Blood Pressure 140/92 02/17/2018 8:56 AM EDT Pulse - - Temperature - - Respiratory Rate - - Oxygen Saturation - - Inhaled Oxygen Concentration - - Weight 78 kg (172 lb) 02/17/2018 8:56 AM EDT Height 163.8 cm (5' 4.5 ) 02/17/2018 8:56 AM EDT Body Mass Index 29.07 02/17/2018 8:56 AM EDT Plan of Treatment Health Maintenance Due Date Last Done Comments DEPRESSION SCREENING 1967 HEPATITIS C SCREENING 1973 COLOGUARD 2000 FIT TEST 2000 FOBT 2000 SIGMOIDOSCOPY 2000 VIRTUAL COLONOSCOPY 2000 PNEUMOCOCCAL VACCINES (50+ years) (1 of 1 - PCV) 2005 ZOSTER VACCINES (1 of 2) 2005 OSTEOPOROSIS SCREENING INITIAL (ONE-TIME) 2020 Adult Td,Tdap Booster 10/18/2024 10/18/2014, 010 INFLUENZA VACCINE (#1) 2025 8, 09/09/2012, 09/08/2012 COVID-19 VACCINE (2 - season) 2025 11/27/2020 MAMMOGRAM 04/06/2026 04/06/2024, 02/22, 03/19/2022, Additional history exists LIPID PANEL 02/27/2027 02/27/2022, 02/22, 01/19/2019, Additional history exists COLONOSCOPY 07/27/2028 07/27/2018 COLORECTAL CANCER SCREENING 07/27/2028 RSV VACCINE (1 - 1-dose 75+ series) 2030 SMOKING STATUS SCREENING (Once After 26 Yrs) Completed 03/20/2023 HEPATITIS A VACCINES Aged Out No long er eligible based on patient's age to complete this topic HIB VACCINES Aged Out No longer eligi ble based on patient's age to complete this topic MENINGOCOCCAL VACCINES (ACWY) Aged Out No longer eligible based on patient's age to complete this topic MENINGOCOCCAL VACCINES (B) Aged Out N o longer eligible based on patient's age to complete this topic Medical Devices Not on file Procedures Procedure Name Priority Date/Time Associated Diagnosis Comments BI MAMMOGRAM SCREENING WITH TOMOSYNTHESIS WITH CAD (BILATERAL) Routine 04/06/2024 12:46 PM EDT Breast screening LIPID PANEL Routine 03/13/2020 10:21 AM EDT Routine medical exam HM COLONOSCOPY FOR RESULT ENTRY ONLY Routine 07/27/2018 from Last 3 Months or Most Recently Relevant to Health Maintenance Results * BI MAMMOGRAM SCREENING WITH TOMOSYNTHESIS [...] Winnie POE IMG MG EXAMS Final Result * (ABNORMAL) Lipid panel (03/13/2020 10:21 AM EDT) HDL 56 mg/dL [facility] Comment: Interpretation <40 mg/dL: Low HDL cholesterol (major risk factor for CHD) Greater than or equal to 60 mg/dL: High HDL cholesterol ( negative risk factor for CHD) HDL - cholesterol is affected by a number of factors, e.g. smoking, excerise, hormones, sex and age. CHOLESTEROL 208 0 - 240 mg/dL [facility] TRIGLYCERIDES 83 30 - 160 mg/dL [facility] LDL 135(H) 50 - 129 mg/dL [facility] Comment: LDL levels in terms of risk for coronary heart disease: <100 mg/dL: Optimal 100-129 mg/dL: Near or above optimal 130-159 mg/dL: Borderline high 160-189 mg/dL: High >190 mg/dL: Very High CARDIAC RISK RATIO 3.7 3.3 - 4.4 C [facility] Blood 03/13/2020 10:2 1 AM EDT 03/13/2020 10:25 AM EDT Winnie POE LAB BLOOD BKR ORDERABLES Final Result [address] [address] * COLONOSCOPY FOR RESULT ENTRY ONLY (07/27/2018) Colonoscopy External Historical Provider HEALTH MAINTENANCE Final Result from Last 3 Months or Most Recently Relevant to Health Maintenance [place] [address] [place] [address] MEDICARE PPO BLUE REPLACEMENT [facility] MEDICARE PPO BLUE REPLACEMENT [place] [address] MEDICARE PPO BLUE REPLACEMENT [place] [address] MEDICARE PPO BLUE REPLACEMENT [place] [address] MEDICARE PPO BLUE REPLACEMENT [place] [address] MEDICARE PPO BLUE REPLACEMENT Care Teams Bolt Man Relationship Specialty Start Date End Date Brooke Frias MD [address] [place] [address] [email or web address] PCP - General 06/08/17 Additional Source Comments The information contained in this document represents components of the legal health record. It is not the complete legal health record.[facility]
--- OUTSIDE RECORDS SUMMARY | 2025-08-10 12:18 | XMS_ITS | Encounter Summary ---
Author Organization [facility] Address [address] [place] [address] Phone Care Team Providers Care Jet Man Name Role Phone Brooke Frias MD Primary Care Provider Brooke Frias MD Unavailable Encounter Details Date Type Department Care Team (Late st Contact Info) Description 11/23/2017 Ancillary Orders Virtual Department 30 [place] [address] Winnie Wright PA [address] [place] [address] [email or web address] Abnormal mammogram Social History Tobacco Use Types Packs/Day Years [...] of this encounter Results * BI MAMMOGRAM DIAGNOSTIC WITH TOMOSYNTHESIS NO CAD (RIGHT) (11/26/2017 2:42 PM EDT) Anatomical Region Laterality Modality Breast Right, Breast Bilateral Right M ammography 11/26/2017 2:43 PM EDT Impressions 11/26/2017 2:47 PM EDT No mammographic evidence of malignancy. Recommend return to routine annual surveillance. Findings relayed to the patient via the technologist. BI-RADS CATEGORY: 1 - Negative. DENSITY: The breast tissue is heterogeneously dense, an appearance which lowers the sensitivity of mammography. POS - [id number] Narrative 11/26/2017 2:47 PM EDT 62-year-old female who presents for a callback mammogram for a right breast density. Comparison made to previous mammograms. Interpretation made in conjunction with computer-aided detection and tomosynthesis. Spot compression right cc view obtained. The right breast is heterogeneously dense, which may obscure small masses. No masses identified. Procedure Note Zeinab Boone MD - 11/26/2017 62-year-old female who presents for a callback mammogram for a rightbreast density. Comparison made to previous mammograms. Interpretationmade in conjunction with computer-aided detection and tomosynthesis. Spot compression right cc view obtained. The right breast isheterogeneously dense, which may obscure small masses. No massesidentified. IMPRESSION: No mammographic evidence of malignancy. Recommend return to routineannual surveillance. Findings relayed to the patient via thetechnologist. BI-RADS CATEGORY: 1 - Negative. DENSITY: The breast tissue is heterogeneously dense, an appearance whichlowers the sensitivity of mammography. POS - [id number] Winnie POE IMG MG EXAMS Final Result documented in this encounter Visit Diagnoses Diagnosis Abnormal mammogram Abnormal mammogram, unspecified Abnormal mammogram Abnormal mammogram, unspecified documented in this encounter Care Teams Jet Man Relationship Specialty Start Date End Date Brooke Frias MD [address] [place] [address] PCP - General 06/08/17 Brooke Frias MD [address] [place] [address] Insurance Assigned Provider 11/28/2302/21 documented as of this encounter Additional Source Comments The information contained in this document represents components of the legal health record. It is not the complete legal health record.[facility]
--- OUTSIDE RECORDS SUMMARY | 2025-08-10 12:19 | XMS_ITS | Encounter Summary ---
Author Organization [facility] Address [address] [place] [address] Phone Care Team Providers Care Curriculum Advisory Teacher Name Role Phone Brooke Frias MD Primary Care Provider Brooke Frias MD Unavailable [phone] Encounter Details Date Type Department Care Team (Late st Contact Info) Description 01/19/2019 Ancillary Orders Virtual Department 30 [place] [address] Winnie Wright PA [address] [place] [address] [email or web address] Popliteal fullness Social History Tobacco Use Types Packs/Day Years [...] Industry Job Start Date Job End Date [employer] Not on file Not on file Not on file documented as of this encounter Plan of Treatment Not on file documented as of this encounter Results * US LOWER EXTREMITY NON-VASCULAR LIMITED (LEFT) (01/20/2019 1:58 PM EDT) Anatomical Region Laterality Modality Hip Left, Thigh Left, Knee L eft, Leg Left, Ankle Left, Foot Left Ultrasound 01/20/2019 2:04 PM EDT Impressions 01/20/2019 2:06 PM EDT No Frias's cyst. POS - [id number] Narrative 01/20/2019 2:06 PM EDT HISTORY: As above. COMPARISON: Left lower extremity Doppler ultrasound 01/01/2016. LIMITED LEFT LOWER EXTREMITY SOFT TISSUE ULTRASOUND FINDINGS: Imaging was obtained of the left popliteal fossa. No Frias's cyst is identified. Popliteal vein is compressible. No popliteal DVT identified. Procedure Note Zeinab Boone MD - 01/20/2019 HISTORY: As above. COMPARISON: Left lower extremity Doppler ultrasound 01/01/2016. LIMITED LEFT LOWER EXTREMITY SOFT TISSUE ULTRASOUND FINDINGS: Imaging was obtained of the left popliteal fossa. No Frias's cyst isidentified. Popliteal vein is compressible. No popliteal DVTidentified. IMPRESSION: No Frias's cyst. POS - [id number] Winnie POE IMG US EXTREMITY Final Result documented in this encounter Visit Diagnoses Diagnosis Popliteal fullness Popliteal fullness documented in this encounter Care Teams Curriculum Advisory Teacher Relationship Specialty Start Date End Date Brooke Frias MD [address] [place] [address] PCP - General 06/08/17 Brooke Frias MD [address] [place] [address] Insurance Assigned Provider 11/28/2302/21 documented as of this encounter Additional Source Comments The information contained in this document represents components of the legal health record. It is not the complete legal health record.[facility]
--- OUTSIDE RECORDS SUMMARY | 2025-08-10 12:19 | XMS_ITS | Encounter Summary ---
Author Organization [facility] Address [address] [place] [address] Phone Care Team Providers Care Slime Plant Operator Helper Name Role Phone Brooke Frias MD Primary Care Provider Brooke Frias MD Unavailable [phone] Encounter Details Date Type Department Care Team (Late st Contact Info) Description 01/01/2023 Transcribe Orders Virtual Department [address] [place] [address] Brooke Frias MD [address] [place] [address] [email or web address] Breast screening (Primary Dx) Social History Tobacco Use Types Packs/Day Years Used Date Smoking Tobacco: Never Smokeless Tobacco: Never Alcohol Use Standard Drinks/Week Comments No 0 (1 standard drink = 0.6 oz pur e alcohol) Education Answer Date Recorded Are you interested in more education? Not on rajni e 12/19/2022 Are you concerned about learning? Not on file 12/19/2022 No 12/19/2022 No 12/19/2022 Comments No Sex and Gender Information Value Date Recorded Sex Assigned at Not on file Legal Sex Female 9:55 PM EDT Gender Identity Not on file Sexual Orientation Not on file Occupation Industry Job Start Date Job End Date [employer] Not on file Not on file Not on file documented as of this encounter Plan of Treatment Not on file documented as of this encounter Results * BI MAMMOGRAM SCREENING WITH TOMOSYNTHESIS WITH CAD (BILATERAL) (03/20/2023 4:31 PM EDT) Anatomical Region Laterality Modality Breast Left, Breast Right, Breast Bilateral Bila teral Mammography 03/26/2023 12:4 6 PM EDT Impressions 03/26/2023 12:48 PM EDT No findings suspicious for malignancy are identified. In the absence of a worrisome palpable abnormality, annual screening mammography is recommended. BI-RADS CATEGORY: 1 - Negative. DENSITY: The breast tissue is heterogeneously dense, which could obscure a lesion on mammography. Narrative 03/26/2023 12:48 PM EDT AVAILABLE COMPARISON: 03/19/2022 through 12/11/2003 Bilateral 3-D tomosynthesis with 2-D reconstructions in the CC and MLO projection. Computer-aided detection system was utilized. No new mass, asymmetry, architectural distortion or suspicious calcifications have become apparent in either breast. Procedure Note Jens Rodriguez MD - 03/26/2023 AVAILABLE COMPARISON: 03/19/2022 through 12/11/2003 Bilateral 3-D tomosynthesis with 2-D reconstructions in the CC and MLOprojection. Computer-aided detection system was utilized. No new mass, asymmetry, architectural distortion or suspiciouscalcifications have become apparent in either breast. IMPRESSION: No findings suspicious for malignancy are identified. In the absence of aworrisome palpable abnormality, annual screening mammography isrecommended. BI-RADS CATEGORY: 1 - Negative. DENSITY: The breast tissue is heterogeneously dense, which could obscurea lesion on mammography. Brooke Frias MD IMG MG EXAMS Final Resul t documented in this encounter Visit Diagnoses Diagnosis Breast screening- Primary Breast screening, unspecified Breast screening Breast screening, unspecified documented in this encounter Care Teams Slime Plant Operator Helper Relationship Specialty Start Date End Date Brooke Frias MD [address] [place] [address] PCP - General 06/08/17 Brooke Frias MD [address] [place] [address] [email or web address] Insurance Assigned Provider 11/28/2302/21 documented as of this encounter Additional Source Comments The information contained in this document represents components of the legal health record. It is not the complete legal health record.[facility]
--- OUTSIDE RECORDS SUMMARY | 2025-08-10 12:19 | XMS_ITS | Encounter Summary ---
Author Organization [facility] Address [address] [place] [phone] Phone Care Team Providers Care Obstetrics Gynecology Physician Name Role Phone Brooke Frias MD Primary Care Provider [phone] Brooke Frias MD Unavailable [phone] Encounter Details Date Type Department Care Team (Late st Contact Info) Description 01/01/2023 Procedure Pass [facility] - [address] [place] [address] Social History Tobacco Use Types Packs/Day Years [...] Industry Job Start Date Job End Date [employer] Not on file Not on file Not on file documented as of this encounter Plan of Treatment Not on file documented as of this encounter Visit Diagnoses Not on filedocumented in this encounter Care Teams Obstetrics Gynecology Physician Relationship Specialty Start Date End Date Brooke Frias MD [address] [place] [phone] [email or web address] PCP - General 06/08/17 Brooke Frias MD [address] [place] [phone] [email or web address] Insurance Assigned Provider 11/28/2302/21 documented as of this encounter Additional Source Comments The information contained in this document represents components of the legal health record. It is not the complete legal health record.[facility]
[2025-08-10 12:40] LABS: Anion Gap 10 (12-20)
[2025-08-10 12:44] LABS: Alanine Aminotransferase 26 U/L (0-31); Albumin Level 4.2 g/dL (3.5-5.0); Alkaline Phosphatase 84 U/L (39-117); Aspartate Amino Transferase 25 U/L (5-31); Blood Urea Nitrogen 15 mg/dL (9-16); Calcium 9.1 mg/dL (8.4-10.2); Carbon Dioxide 28 mmol/L (22-29); Chloride 107 mmol/L (96-108); Cholesterol 227 mg/dL (<200); Estimated Glomerular Filt Rate > 60; HDL Cholesterol 51 mg/dL (>40); Potassium 4.6 mmol/L (3.3-5.1); Sodium 140 mmol/L (135-145); Total Protein 6.9 g/dL (6.5-8.0); Triglycerides 77 mg/dL (<150)
[2025-08-10 14:01] LABS: HIV Num 1 0.11 S/CO (0.00-0.99); ~HepC Num1 0.11 S/CO (0.00-0.79); ~Hepatitis C Antibody Nonreactive (Nonreactive)
== END 2025-08-10 09:57 | disposition home or self-care (01) ==
LOC: HO.LAB 09:56
PROVIDERS: PCP Internal Medicine; Visit Provider Internal Medicine
DX: Z00.00 Encounter for general adult medical examination without abnormal findings (principal); Z13.0 Encounter for screening for diseases of the blood and blood-forming organs and certain disorders involving the immune mechanism; Z13.29 Encounter for screening for other suspected endocrine disorder; Z13.1 Encounter for screening for diabetes mellitus; Z13.6 Encounter for screening for cardiovascular disorders
CPT/HCPCS: 36415; 80053; 80061; 83036; 84443; 85027; 86803; 87389